=== PATIENT | female | born 1985 | race Caucasian/White ===

== ENCOUNTER → 2017-01-31 | Outpatient (CLI) | payer BC ==
[~2017-01-31] MED LIST: PRENTAB26 PO
--- NOTE | 2017-02-01 08:16 | MAMMOGRAPHY REPORT ---
BILATERAL DIGITAL SCREENING MAMMOGRAM TOMOSYNTHESIS WITH CAD: 01/31/2017 CLINICAL HISTORY: Routine screening. Patient has no complaints. TECHNIQUE: Breast tomosynthesis in addition to standard 2D mammography was performed. Current study was also evaluated with a Computer Aided Detection (CAD) system. COMPARISON: Comparison is made to exams dated: 11/30/2015 mammogram and 01/29/2014 mammogram - [facility]. BREAST COMPOSITION: The tissue of both breasts is heterogeneously dense, which may obscure small ma sses. FINDINGS: No suspicious masses, calcifications, or areas of architectural distortion are noted in e ither breast. There has been no significant interval change compared to prior exams. A few scattere d bilateral benign-appearing calcifications are again noted. IMPRESSION: ACR BI-RADS CATEGORY 2: BENIGN There is no mammographic evidence of malignancy. A 1 year screening mammogram is recommended. Given the dense breasts and strong family history of breast cancer, consider additional screening with risa ast MRI. The patient will receive written notification of the results. Approximately 10% of breast cancers are not detected with mammography. A negative mammographic repor t should not delay biopsy if a clinically suggestive mass is present. Ann Sneed M.D. ah/:01/31/2017 16:16:56 Ignition Specialist: Jazz [employer]INA([employer])(M), [facility] letter sent: Normal 1/2 BI-RADS Code: ACR BI-RADS Category 2: Benign
== END | disposition home or self-care (01) ==
LOC: C.MAMM 15:46
PROVIDERS: ATTEND Obstetrics & Gynecology
DX: Z12.31 Encounter for screening mammogram for malignant neoplasm of breast (principal); Z80.3 Family history of malignant neoplasm of breast

== ENCOUNTER 2020-08-28 20:30 | Inpatient (IN) ==
--- NOTE | 2020-08-28 21:24 | History & Physical Report ---
Date of Service August 28, 2020 Assessment & Plan (1) Post-dates : will allow to ambulate and reevaluate in about one hour. Fhts categ 1. will need rapid covid test if admitted in labor. History of Present Illness Chief Complaint: regular ctx Primary Care Provider: NO PCP 35yo at 40+wks marta presents to L&D with cc of regular ctx. Says she feels them to be 2-3 min apart. No rom. No vb. +FM PNC uncomplicated PNL rh pos, ri, gbs neg, covid pending OBH: x 2 GYNH: nl paps no stds Allergies Allergy/AdvReac Type Severity Reaction Status Date / Time No Known Allergies Allergy Verified 08/27/20 15:22 Home Medications Medication Instructions Recorded Confirmed Type prenat.vits,deondre,fck-nwsc-honkh 1 tab PO DAILY 12/29/19 08/28/20 History sertraline 100 mg PO DAILY 08/28/20 08/28/20 History Patient History Medical History (Updated 08/28/20 @ 21:30 by Kristel Rader MD, FACOG) Anxiety and depression Encounter for anatomic survey Encounter for gynecological examination without abnormal finding Family history of malignant neoplasm of breast Mother dx'd age 36, age 39 Gastroenteritis H/O varicella Post term over 40 weeks Surgical History S/P tonsillectomy Family History Grandfather (Maternal) Diabetes Mother Breast cancer DX'D AGE 36, AGE 39 Denies family history of Ovarian cancer Prostate cancer Myocardial infarction Colorectal cancer Social History (Updated 12/29/19 @ 13:09 by Danay Su) Smoking Status: Never smoker Hx Alcohol Use: No Hx Substance Use: No marital status: marital status details: Jovanni Morgan (36) [phone] Current Living Situation: Spouse and Family Current Living Situation Comment: lives with spouse and children, 1 dog current occupational status: employed current occupation: property management Feels Safe at Home: Yes Safety Concerns: Feels Safe At This Time Review of Systems as per Subjective / HPI Physical Exam Constitutional: WD/WN, vitals as above Gastrointestinal (Abdomen): soft gravid nt Musculoskeletal: no edema nontender calves Neurologic: grossly normal Psychiatric: A+Ox3, euthymic affect Genitourinary: OB Exam Abdomen: + estimated weight (7.5#) Manual OB Exam: + cervical dilation 4 cm, + cervical effacement (75%) and + station -2 OB Exam Monitor Tracing: + external FHT monitor used (150 mod variability), + external uterine monitor used (q4-5), + category I and + normal FHT variability Results & Data ([facility]) Vital Signs (Past 12 Hours) Vital Signs Temp Pulse Resp BP 08/28/20 20:45 98.2 F 18 08/28/20 20:43 93 H 113/75 Coding Level of Care Code None Diagnoses Post-dates O48.0
[2020-08-28] MEDS ORDERED: OXYTOCIN 30 UNITS/500 ML BAG IV PRN ×2 (22:04→22:45)
[2020-08-28] MEDS ORDERED: LACTATED RINGER'S 1,000 ML IV PRN (22:04)
[2020-08-28] MEDS ORDERED: SODIUM CHLORIDE 0.9% INJ 10 ML VIAL ONE (22:05)
[2020-08-28] MEDS ORDERED: ePHEDrine sulfate 50 MG/ML AMP ONE (22:05)
[2020-08-28] MEDS ORDERED: BUPIVACAINE 0.25% 30 ML VIAL ONE (22:05)
[2020-08-28] MEDS ORDERED: fentaNYL citrate 100 MCG/2 ML VIAL ONE (22:06)
[2020-08-28] MEDS ORDERED: fentaNYL 2MCG/ML ROPIVACAINE 1.25MG/ML 100 ML BAG EPI ONE (22:06)
--- NOTE | 2020-08-28 22:08 | Labor Progress Brief Note ---
Date of Service August 28, 2020 Subjective Reason For Note: Routine Evaluation pt visibly more uncomfortable, says ctx are stronger. no rom Assessment & Plan (1) Active labor at term: (2) Post-dates : admit, iv, labs. desires epidural, needs covid swab. fhts categ 1. Physical Exam Constitutional: WD/WN, vitals as above Genitourinary: Manual OB Exam: + cervical dilation 5 cm, + cervical effacement 100% and + station 0 OB Exam Monitor Tracing: + external FHT monitor used (145 mod variability), + external uterine monitor used (just put back on monitor), + category I and + normal FHT variability Results & Data ([facility]) Vital Signs (Past 12 Hours) Vital Signs Temp Pulse Resp BP 08/28/20 20:45 98.2 F 18 08/28/20 20:43 93 H 113/75 Coding Level of Care Code None Diagnoses Active labor at term Post-dates O48.0
[2020-08-28 22:28] LABS: Hematocrit (blood only) 38.7 % (37-47); Hemoglobin 13.1 g/dL (12.0-16.0); Mean Corpuscular Hemoglobin 29.1 pg (25-34); Mean Corpuscular Hgb Conc 33.9 g/dL (32-36); Mean Platelet Volume 11.2 fL (7.4-10.4); Platelet Count 241 K/uL (130-400); RDW Standard Deviation 43.5 fL (36.4-46.3); White Blood Count 12.05 K/uL (4.8-10.8)
[2020-08-28] MEDS ORDERED: LIDOCAINE HCL 1% 20 ML VIAL ONE (22:31)
[2020-08-28] MEDS ORDERED: oxyCODONE/ACETAMINOPHEN 5mg/325mg TAB PO PRN (22:45)
[2020-08-28] MEDS ORDERED: ACETAMINOPHEN 325 MG TAB PO PRN (22:45)
--- NOTE | 2020-08-28 22:48 | Delivery Summary ---
Vaginal Delivery Summary Date of Service August 28, 2020 The patient dilated to complete and pushed to deliver a viable male infant s 7 and 9 via over 2nd degree perineal laceration. AROM performed prior to delivery. Shoulders and body delivered with ease rapidly and then mouth and nose bulb suctioned. was vigorous and crying at . Cord clamped at 20 seconds of life and to maternal abdomen where the cord was then doubly clamped and cut. Placenta delivered spontaneously and intact, three-vessel cord. Hemostasis achieved with dilute pitocin and uterine massage. Cervix and sulci intact. EBL 300 cc. Local lidocaine 1% anesthesia administered and then laceration repaired in usual fashion. Mother and baby stable recovery. [facility] Vaginal Delivery Charge Vaginal Delivery Codes: 56241 global code for the antepartum, delivery, and post-
[2020-08-28] MEDS ORDERED: BENZOCAINE 20% AER SPR 82.5 GM CAN EXT PRN (22:49)
[2020-08-28] MEDS ORDERED: HYDROCORTISONE ACETATE 25 MG SUPP PR PRN (22:49)
[2020-08-28] MEDS ORDERED: DIPHTHERIA/TETANUS/PERTUSSIS 0.5 ML SYR/VIAL IM ONE (22:49)
[2020-08-28] MEDS ORDERED: SUPERCREAM 0.870% 15 GM JAR EXT PRN (22:49)
[2020-08-28 23:09] LABS: Base Excess Cord Venous Blood -1.5 mEq/L (-7.7-1.9); Cord Venous Blood HCO3 23 mmol/L (18.4-26.8); Cord Venous Blood PCO2 36 mmHg (30.4-57.2); Cord Venous Blood PO2 19 mmHg (14.1-43.3); Cord Venous Blood pH 7.41 (7.20-7.44)
[2020-08-28 23:16] LABS: Base Excess Cord Arterial Bld -2.1 mEq/L (-9-1.8); CO2 Cord Arterial Blood 45 mmHg (39.1-73.5); HCO3 Cord Arterial Blood 24 mmol/L (19.7-28.5); PO2 Cord Arterial Blood 19 mmHg (4.1-31.7); pH Cord Arterial Blood 7.34 (7.1-7.38)
[2020-08-28 23:18] LABS: O2 Saturation Cord Venous Bld < 60.0 % (<68); Oxygen Sat Cord Arterial Blood < 60.0 % (<60)
[2020-08-28] MEDS: OXYTOCIN 20 UNITS in LACTATED RINGER'S 1,000 ML IV SCH (23:19)
[2020-08-28] MEDS: IBUPROFEN 600 MG TAB PO PRN (23:50)
[2020-08-29] MEDS: IBUPROFEN 600 MG TAB PO PRN ×3 (05:04→21:10)
[2020-08-29] MEDS: OXYTOCIN 20 UNITS in LACTATED RINGER'S 1,000 ML IV SCH (07:22)
--- NOTE | 2020-08-29 07:52 | Obstetrical Progress Note ---
Date of Service August 29, 2020 Assessment & Plan (1) examination following vaginal delivery: stable, doing well, routine care. rh pos, ri, bottlefeeding Day #:: 1 Subjective Ambulation: ambulating normally Voiding: no voiding problems Diet Tolerance:: regular diet Lochia:: Small Feeding Type:: bottle feeding doing well, denies complaints. Physical Exam Constitutional WD/WN, vitals as above Respiratory normal respiratory effort, lungs clear to auscultation Cardiovascular Rate/Rhythm: regular rate and regular rhythm Gastrointestinal (Abdomen) Inspection/Auscultation: abdomen normal to inspection Percussion/Palpation: abdomen soft Fundus firm 1cm down Musculoskeletal nt calves no edema Neurologic grossly normal Psychiatric A+Ox3, euthymic affect Results & Data ([facility]) Vital Signs (Past 12 Hours) Vital Signs Temp Pulse Pulse Resp BP BP Pulse Ox 08/29/20 04:45 97.9 F 70 16 115/76 97 08/29/20 01:30 98.2 F 79 18 128/79 08/29/20 00:44 86 119/73 08/29/20 00:29 89 112/68 08/29/20 00:14 77 113/66 08/28/20 23:59 75 110/66 08/28/20 23:44 77 109/66 08/28/20 23:29 81 116/55 L 08/28/20 23:20 81 139/62 08/28/20 22:42 79 123/81 08/28/20 22:19 71 92 08/28/20 22:17 65 99 08/28/20 20:45 98.2 F 18 08/28/20 20:43 93 H 113/75
[2020-08-29] MEDS: DOCUSATE SODIUM 100 MG CAP PO SCH ×2 (07:55→21:09)
[2020-08-29] MEDS: SERTRALINE HCL 100 MG TABLET PO SCH (08:52)
--- NOTE | 2020-08-30 07:09 | Obstetrical Progress Note ---
Date of Service August 30, 2020 Assessment & Plan (1) examination following vaginal delivery: stable, ready for d/c home, bottle, rhpos, ri. instructions reviewed. f/u 6wkpp check. Day #:: 2 Subjective Ambulation: ambulating normally Voiding: no voiding problems Diet Tolerance:: regular diet Lochia:: Small Feeding Type:: bottle feeding doing well, some cramps using motrin. Physical Exam Constitutional WD/WN, vitals as above Respiratory normal respiratory effort, lungs clear to auscultation Cardiovascular Rate/Rhythm: regular rate and regular rhythm Gastrointestinal (Abdomen) Inspection/Auscultation: abdomen normal to inspection Percussion/Palpation: abdomen soft fundus firm 2 cm below umbilicus Musculoskeletal nt calves no edema Neurologic grossly normal Psychiatric A+Ox3, euthymic affect Results & Data ([facility]) Vital Signs (Past 12 Hours) Vital Signs Temp Pulse Resp BP Pulse Ox 08/29/20 23:10 97.9 F 70 16 107/69 94 08/29/20 19:10 97.9 F 73 18 93/63 L
[2020-08-30] MEDS: IBUPROFEN 600 MG TAB PO PRN (08:40)
[2020-08-30] MEDS: SERTRALINE HCL 100 MG TABLET PO SCH (08:40)
[2020-08-30] MEDS: DOCUSATE SODIUM 100 MG CAP PO SCH (08:40)
== END 2020-08-30 10:30 | disposition home or self-care (01) | DRG 807 ==
LOC: OPB 20:30 → 4S1 20:36 → 4S2 08-29 02:01